=== PATIENT | female | born 1950 | race Caucasian/White ===

== ENCOUNTER 2018-04-18 06:14 | Day surgery (SDC) | payer OTHER ==
[2018-04-18 07:47] LABS: ADD MAN DIFF? NO
[2018-04-18 07:50] LABS: WHITE BLOOD COUNT 8.6 10^3/ul (4.8-10.8)
[2018-04-18 07:50] LABS: BASOPHIL # 0.1 10^3/ul (0.0-0.1); BASOPHILS % 0.8 % (0.0-2.0); EOSINOPHILS # 0.3 10^3/ul (0.0-0.5); EOSINOPHILS % 3.8 % (0.0-7.0); HEMATOCRIT 32.3 % (37.0-47.0); LYMPHOCYTES # 1.7 10^3/ul (0.8-2.9); LYMPHOCYTES % 19.1 % (15.0-51.0); MEAN CORPUSCULAR HEMOGLOBIN 32.4 pg (29.0-33.0); MEAN CORPUSCULAR HGB CONC 34.1 g/dl (32.0-37.0); MEAN CORPUSCULAR VOLUME 95.3 fl (82.0-101.0); MEAN PLATELET VOLUME 9.4 fl (7.4-10.4); MONOCYTE # 0.7 10^3/ul (0.3-0.9); MONOCYTES % 8.3 % (0.0-11.0); NEUTROPHIL # 5.8 10^3/ul (1.6-7.5); NEUTROPHILS % 67.8 % (39.0-77.0); PLATELET COUNT 230 10^3/UL (140-415); RED BLOOD COUNT 3.39 10^6/ul (4.20-5.40); RED CELL DISTRIBUTION WIDTH 13.2 % (11.5-14.5)
[2018-04-18 08:10] LABS: INR 1.01; PROTIME 13.4 Sec (11.9-14.9)
[2018-04-18] MEDS ORDERED: HEPARIN 1000 UNITS/NS (A-LINE) 1,000 ML (08:15)
[2018-04-18] MEDS ORDERED: FENTAnyl 50 MCG/ML VIAL (08:15)
[2018-04-18] MEDS ORDERED: IODIXANOL LOCM 50 ML BTL (08:15)
[2018-04-18] MEDS ORDERED: MIDAZOLAM 1 MG/ML 2 ML INJ (08:15)
[2018-04-18] MEDS ORDERED: HEPARIN 1000 UNITS/ML 10 ML INJ (08:15)
[2018-04-18] MEDS ORDERED: LIDOCAINE 2% (SDV) 5 ML INJ (08:15)
[2018-04-18 08:18] LABS: ANION GAP 28 (8-16); CARBON DIOXIDE 23 mmol/L (21-31); CHLORIDE 93 mmol/L (97-110); GLUCOSE 192 mg/dl (70-220)
[2018-04-18 08:20] LABS: CALCIUM 10.1 mg/dl (8.4-10.2); SODIUM 139 mmol/L (135-144)
[2018-04-18 08:25] LABS: BLOOD UREA NITROGEN 89 mg/dl (7-20); CREATININE 7.66 mg/dl (0.44-1.00); POTASSIUM 4.8 mmol/L (3.5-5.1)
[2018-04-18] MEDS ORDERED: hydrALAzine 20 MG INJ (08:25)
[2018-04-18] MEDS ORDERED: SOD CHLORIDE 0.9% 500 ML (08:25)
[2018-04-18] MEDS ORDERED: CEFAZOLIN 2 GM/50 ML (PMX) 50 ML IVPB (08:42)
== END 2018-04-18 09:58 | disposition home or self-care (01) ==
LOC: SDS 06:14
DX: E11.22 Type 2 diabetes mellitus with diabetic chronic kidney disease (principal); I12.0 Hypertensive chronic kidney disease with stage 5 chronic kidney disease or end stage renal disease; N18.6 End stage renal disease; K52.9 Noninfective gastroenteritis and colitis, unspecified; K56.7 Ileus, unspecified; K21.9 Gastro-esophageal reflux disease without esophagitis; Z99.2 Dependence on renal dialysis
CPT/HCPCS: 36901; 76937; 80048; 82962; 85025; 85610; 85730

== ENCOUNTER 2018-05-03 00:35 | Emergency (ER) | payer OTHER ==
[2018-05-03] MEDS: ONDANSETRON 4 MG INJ IV (01:08)
[2018-05-03] MEDS: morphine 4 MG/ML VIAL IV (01:09)
[2018-05-03] MEDS: SOD CHLORIDE 0.9% 500 ML IV (01:11)
[2018-05-03 01:21] LABS: ADD MAN DIFF? NO
[2018-05-03 01:23] LABS: WHITE BLOOD COUNT 8.9 10^3/ul (4.8-10.8)
[2018-05-03 01:23] LABS: BASOPHIL # 0.1 10^3/ul (0.0-0.1); BASOPHILS % 0.6 % (0.0-2.0); EOSINOPHILS # 0.4 10^3/ul (0.0-0.5); EOSINOPHILS % 4.3 % (0.0-7.0); HEMATOCRIT 31.2 % (37.0-47.0); HEMOGLOBIN 10.5 g/dl (12.0-16.0); LYMPHOCYTES # 1.6 10^3/ul (0.8-2.9); MEAN CORPUSCULAR HGB CONC 33.7 g/dl (32.0-37.0); MEAN CORPUSCULAR VOLUME 98.1 fl (82.0-101.0); MEAN PLATELET VOLUME 9.5 fl (7.4-10.4); MONOCYTE # 0.7 10^3/ul (0.3-0.9); MONOCYTES % 7.8 % (0.0-11.0); NEUTROPHIL # 6.2 10^3/ul (1.6-7.5); NEUTROPHILS % 69.1 % (39.0-77.0); PLATELET COUNT 209 10^3/UL (140-415); RED BLOOD COUNT 3.18 10^6/ul (4.20-5.40); RED CELL DISTRIBUTION WIDTH 13.2 % (11.5-14.5)
[2018-05-03 01:52] LABS: ALANINE AMINOTRANSFERASE 16 IU/L (13-69); ALBUMIN 4.7 g/dl (3.3-4.9); ALBUMIN/GLOBULIN RATIO 1.51; ALKALINE PHOSPHATASE 200 IU/L (42-121); ANION GAP 24 (8-16); ASPARTATE AMINO TRANSFERASE 18 IU/L (15-46); BLOOD UREA NITROGEN 95 mg/dl (7-20); CALCIUM 9.7 mg/dl (8.4-10.2); CARBON DIOXIDE 22 mmol/L (21-31); CHLORIDE 97 mmol/L (97-110); CREATININE 9.04 mg/dl (0.44-1.00); GLUCOSE 137 mg/dl (70-220); LIPASE 235 U/L (23-300); SODIUM 138 mmol/L (135-144); TOTAL PROTEIN 7.8 g/dl (6.1-8.1)
[2018-05-03] MEDS: hydrALAzine 20 MG INJ IV (03:52)
[2018-05-03] MEDS ORDERED: ONDANSETRON 4 MG INJ IV (05:27)
== END 2018-05-03 03:02 | disposition home or self-care (01) ==
LOC: E/R 03:02
DX: K59.00 Constipation, unspecified (principal); I12.0 Hypertensive chronic kidney disease with stage 5 chronic kidney disease or end stage renal disease; N18.6 End stage renal disease; E11.22 Type 2 diabetes mellitus with diabetic chronic kidney disease; Z79.4 Long term (current) use of insulin; Z99.2 Dependence on renal dialysis
CPT/HCPCS: 36415; 74176; 80053; 83690; 85025; 96374; 96375; 99285-25

== ENCOUNTER 2018-09-30 07:46 | Day surgery (SDC) | payer OTHER ==
[2018-09-30] MEDS ORDERED: LIDOCAINE 100 MG SYRINGE (09:42)
[2018-09-30] MEDS ORDERED: PROPOFOL 40 ML (09:42)
[2018-09-30] MEDS ORDERED: PHENYLephrine (100 MCG/ML) 5ML SYG (09:44)
[2018-09-30 10:02] LABS: POTASSIUM 4.7 mmol/L (3.5-5.1)
== END 2018-09-30 13:07 | disposition home or self-care (01) ==
LOC: GIL 07:46
DX: Z12.11 Encounter for screening for malignant neoplasm of colon (principal); K21.0 Gastro-esophageal reflux disease with esophagitis; K64.8 Other hemorrhoids; K57.30 Diverticulosis of large intestine without perforation or abscess without bleeding; K29.70 Gastritis, unspecified, without bleeding; E11.9 Type 2 diabetes mellitus without complications; I10 Essential (primary) hypertension
CPT/HCPCS: 43239; 82962; 84132; 88305; 88312; 88313